=== PATIENT | male | born 1975 | race Caucasian/White ===

== ENCOUNTER 2024-07-08 21:21 | Emergency (ER) | payer OTHER, SELFPAY ==
--- OUTSIDE RECORDS SUMMARY | 2024-07-08 21:25 | XMS_ITS | Continuity of Care Document ---
Author Organization Formerly [facility] Address [address] [place] [address] [address] [place] [address] Phone Care Team Providers Care Superintendent [employer] Name Role Phone Rosario Rivera Unavailable Unavailable Advance Directives Directive Yes / No Effective Date File Name No Information Encounters Encounter Description Practice Location Reason(s) For Visit Diagnoses Date Provider Providers Copied on Encounter [facility], [address] [place] [address] [address], [place], [place], [id number], [place] tel:[phone] [facility] No Information September-0 3-200 1 Nicole Ponce. [address] [facility] , [address], [place], [address], [place]. tel:[phone] Family History Family Member Type Diagnosis Age At Onset No Information Payers Payer name Insurance type Covered green party ID Authoriza tichrista(s) [employer] SOI CI [id number] Social History Type Description Quantity Date Captured Comments Sex Female Smoking Status No Information Chief Complaint And Reason For Visit No Information Reason For Referral Reason For Referral No Information History Of Present Illness Encounter Date Complaint History Of Prese nt Illness No Information Functional Status Date Functional Assessmen t No Information Instructions Date Instruction Additional Infor mation No Information Assessments Type Assessment Date No Information Patient Care Teams Name Effective Dates (start - stop) Status Members No Information
--- OUTSIDE RECORDS SUMMARY | 2024-07-08 21:25 | XMS_ITS | CONTINUITY OF CARE DOCUMENT ---
Author Name [email or web address] Address Unknown Organization [facility] Address [address] [facility] [facility] [address] [place] [address] Phone [phone] Care Team Providers Care Woodworking Machine Feeder Name Role Phone Mary KOHLI, Chuy Unavailable [phone] TATIANA SMALLWOOD MD Unavailable [phone] TATIANA SMALLWOOD MD Unavailable [phone] INSURANCE PROVIDERS Payer name Policy type / Coverage type [place] red constitution party ID [facility] [id number]
[2024-07-08 21:38] VITALS: BP 194/82; PULSE 98; RESP 16; TEMP 39.2; O2SAT 96
[2024-07-08 22:36] LABS: Influenza A QL RT-PCR Positive (Negative); Influenza B QL RT-PCR Negative (Negative); RSV RNA, RT-PCR Negative (Negative); SARS-CoV-2 RNA PCR Negative (Negative)
--- NOTE | 2024-07-09 02:18 | ED_ITS ---
HPI - General Adult General Chief complaint: Unspecified Stated complaint: fever/chills/coughing Time Seen by Provider: 07/09/24 02:18 Source: patient Mode of arrival: ambulatory Limitations: no limitations History of Present Illness HPI narrative: This is a 48-year-old male that presents to the emergency department for cold symptoms. Present since yesterday. Reports fevers, cough, myalgias, generalized weakness. Related Data Allergies Allergy/AdvReac Type Severity Reaction Status Date / Time No Known Allergies Allergy Verified 07/09/24 02:20 Review of Systems Review of Systems: CONSTITUTIONAL: Reports fever, chills RESPIRATORY: Reports cough All systems reviewed & are unremarkable except as noted in HPI and below PMFSH Social History Social History (Updated 07/09/24 @ 02:24 by Holli Fields PA-C) Smoking status: Current every day smoker Exam Narrative: GENERAL: Well-appearing, well-nourished, and in no acute distress. HEAD: Normocephalic, atraumatic. EYES: EOMI. ENT: Nares clear, no rhinorrhea or epistaxis. Mucous membranes moist. Oropharynx without tonsillar hypertrophy exudate or other lesions. Bilateral TMs pearly oliveros non-bulging NECK: Supple. No adenopathy or masses. CHEST: Clear to auscultation. No respiratory distress. No wheezes rales or rhonchi HEART: Regular rate and rhythm. No murmur heard. Normal peripheral pulses. EXTREMITIES: Normal range of motion. No edema. SKIN: Warm, dry, no rash. NEURO: No focal deficits. Alert and oriented x3. PSYCH: Normal mood and affect Course Course Emergency Course: Patient updated on his workup and agrees with plan of care Vital Signs Vital signs: Vital Signs Temperature 102.6 F H 07/08/24 21:38 Pulse Rate 98 07/08/24 21:38 Respiratory Rate 16 07/08/24 21:38 Blood Pressure 194/82 H 07/08/24 21:38 Pulse Oximetry 96 07/08/24 21:38 Oxygen Delivery Room Air 07/08/24 21:38 Temperature 102.6 F H 07/08/24 21:38 Pulse Rate 98 07/08/24 21:38 Respiratory Rate 16 07/08/24 21:38 Blood Pressure 194/82 H 07/08/24 21:38 Pulse Oximetry 96 07/08/24 21:38 Oxygen Delivery Room Air 07/08/24 21:38 Medical Decision Making MDM Narrative Medical decision making narrative: Patient presents the emergency department for cold symptoms present since yesterday. Febrile in the ER. Given dose of Tylenol. He is influenza A positive. His lungs are clear on exam. Oxygen saturation is normal on room air. Will be started on Tamiflu. Was instructed on other symptomatic care of viral infection. He is to follow up with primary provider. He was given warnings to return to ER Differential Diagnosis Differential Diagnosis: Influenza, RSV, COVID, viral infection, bronchitis Vital Signs Vital Signs: Vital Signs Temperature 102.6 F H 07/08/24 21:38 Pulse Rate 98 07/08/24 21:38 Respiratory Rate 16 07/08/24 21:38 Blood Pressure 194/82 H 07/08/24 21:38 Pulse Oximetry 96 07/08/24 21:38 Oxygen Delivery Room Air 07/08/24 21:38 Temperature 102.6 F H 07/08/24 21:38 Pulse Rate 98 07/08/24 21:38 Respiratory Rate 16 07/08/24 21:38 Blood Pressure 194/82 H 07/08/24 21:38 Pulse Oximetry 96 07/08/24 21:38 Oxygen Delivery Room Air 07/08/24 21:38 Lab Data Labs: Lab Results 07/08/24 Range/Units 21:44 Influenza A (RT-PCR) Positive A (Negative) Influenza B (RT-PCR) Negative (Negative) RSV (RT-PCR) Negative (Negative) SARS-CoV-2 RNA (RT-PCR) Negative (Negative) Critical Care Time Critical Care Time Critical Care Time: No Discharge Plan Discharge Clinical Impression: Influenza A Patient Disposition: Home, Self-Care Condition: Stable Instructions: Influenza (ED) Additional Instructions: Return to the emergency department for worsening symptoms, or any other concerns Remain well-hydrated, get plenty of rest. Take Tylenol or Motrin [id number] for pain as needed. Flonase for nasal congestion. Zyrtec for runny nose. Lozenges or Chloraseptic spray for sore throat. Take Tamiflu as prescribed Follow up with primary care doctor Patient Language: Romanian Prescriptions: New oseltamivir 75 mg capsule 75 mg PO Q12H 5 Days Qty: 10 0RF Follow-up/Referrals: PHYSICIAN NOT ON STAFF,NONSTAFF [Primary Care Provider] -
[2024-07-09] MEDS: ACETAMINOPHEN 500 MG TABLET 1000 MG PO (02:24)
[2024-07-09 02:31] VITALS: BP 118/79; PULSE 78; RESP 16; O2SAT 95
--- OUTSIDE RECORDS SUMMARY | 2024-07-09 02:31 | XMS_ITS | Continuity of Care Document ---
Author Organization [facility] Address [address] [place] [address] [address] [place] [address] Phone Care Team Providers Care Eyeglass Frames Polisher Name Role Phone Rosario Rivera Unavailable Unavailable Advance Directives Directive Yes / No Effective Date File Name No Information Encounters Encounter Description Practice Location Reason(s) For Visit Diagnoses Date Provider Providers Copied on Encounter [facility], [id number] [place] [address] [address], [place], [place], [id number], [place] tel:[phone] [facility] No Information September-0 3-200 1 Nicole Ponce. [address] [facility] , [address], [place], [address], [place]. tel:[phone] Family History Family Member Type Diagnosis Age At Onset No Information Payers Payer name Insurance type Covered democrat ID Authoriza tichrista(s) [employer] SOI CI [id number] Social History Type Description Quantity Date Captured [...]
== END 2024-07-09 02:32 | disposition home or self-care (01) ==
LOC: ANHED 07-09 02:29
PROVIDERS: Student in an Organized Health Care Education/Training Program; Emergency Provider Physician Assistant
DX: J10.1 Influenza due to other identified influenza virus with other respiratory manifestations (principal); F17.200 Nicotine dependence, unspecified, uncomplicated; Z20.822 Contact with and (suspected) exposure to COVID-19
CPT/HCPCS: 87637; 99283; A9270